=== PATIENT | female | born 1970 | race Caucasian/White ===

== ENCOUNTER → 2016-07-05 | Outpatient (CLI) | payer OTHER ==
[~2016-07-05] MED LIST: ATOR-26 PO; GADAVIST IV PRN; HYDR-3419 PO; LISI-725 PO
--- NOTE | 2016-07-06 12:46 | MAMMOGRAPHY REPORT ---
BREAST MRI OF BOTH BREASTS : 07/05/2016 CLINICAL HISTORY: History of right breast cancer status post mastectomy with TRAM flap reconstructio n. History of left prophylactic mastectomy and implant reconstruction. Recent surgical excision of a left breast mass, with pathology yielding invasive mammary carcinoma, with positive margins. COMPARISON: Comparison is made to exams dated: 05/02/2016 ultrasound, 06/06/2016 ultrasound - [facility], 07/04/2012 mammogram, 06/26/2012 mammogram, 05/29/2011 mammogram, and 05/26/2010 mammogram - [facility]. Technique: The patient was placed prone in a dedicated breast imaging coil. Precontrast axial T1-we ighted non-fat saturation, axial T1-weighted fat saturation, axial and sagittal T2 STIR water suppre ssion, and axial and sagittal T2 fat saturation sequences were obtained. After the administration of 8 mL of Gadavist IV contrast, sequential T1-weighted fat saturation images were obtained. Subtract ion images were obtained of the dynamic contrast enhanced sequences, and 3-D reformations were perfo rmed. The [employer] software was used for kinetic analysis. Findings: There are postsurgical changes from right mastectomy with TRAM flap reconstruction. There are no en hancing masses or areas of abnormal enhancement within the right reconstructed breast. There are post surgical changes from left mastectomy with implant reconstruction. The subpectoral s ilicone implant is intact without evidence of intracapsular or extracapsular rupture. In the left u pper outer quadrant, middle depth, there is a T2 hyperintense rim-enhancing fluid collection which m easures 13 x 19 mm and is consistent with a postsurgical seroma/hematoma (series 10 image 23). The re is a focal area of nodular enhancement along the posterior aspect of the fluid collection abuttin g the implant, measuring 7 x 6 mm (series 46831 image 49). The nodular enhancement demonstrates a w ashout kinetic pattern and is highly suspicious for residual malignancy. There is thickening, T2 hy perintensity, and enhancement of the skin of the left lateral breast, predominantly in the left uppe r outer quadrant, which is likely related to recent surgery. There are post surgical changes in the right axilla, without evidence of axillary adenopathy bilater ally. The chest wall structures are negative. Extramammary soft tissues are unremarkable. IMPRESSION: ACR BI-RADS CATEGORY 6: KNOWN BIOPSY PROVEN MALIGNANCY 1. Focal 7 mm area of nodular enhancement along the posterior aspect of the fluid collection at the surgical bed in the left upper outer quadrant, which is highly suspicious for residual malignancy. Appropriate clinical action should be taken. 2. The remainder of both reconstructed breasts demonstrate no MRI evidence of malignancy. The left breast implant is intact. Cristina Metz M.D. ah/:07/05/2016 16:39:09 School Psychology Professor: machine tool mechanic, [facility] letter sent: Birad 6 BI-RADS Code: ACR BI-RADS Category 6: Known Biopsy Proven Malignancy
== END | disposition home or self-care (01) ==
LOC: C.MRI 06:35
PROVIDERS: ATTEND Surgery
DX: C50.412 Malignant neoplasm of upper-outer quadrant of left female breast (principal)